=== PATIENT | female | born 1995 | race Caucasian/White ===

== ENCOUNTER → 2016-11-08 | Outpatient (CLI) | payer OTHER ==
--- NOTE | 2016-11-08 09:40 | US ---
Complete Abdominal Ultrasound History: General abdominal pain for 4 weeks. Comparison: None available. Findings: The liver has normal echotexture and contour. There is no intrahepatic biliary dilatation. The common bile duct measures 3 mm and is normal. The gallbladder is normal. The spleen is normal, me asuring 9.0 cm. The kidneys have normal echotexture and contour without hydronephrosis or contour def orming masses. The right kidney measures 10.0 cm and the left kidney measures 10.1 cm. The visible ao rta is normal caliber. The visible portions of the pancreas are normal with partial obscuration of th e pancreatic head and tail by overlying bowel gas. The visible portions of the IVC are normal. Impression: Normal abdominal ultrasound.
--- NOTE | 2016-11-08 12:55 | US ---
Transabdominal Pelvic Ultrasound History: 21-year-old with cramping, pain, Mirena IUD placed 3 years ago, amenorrhea secondary to IUD. Comparison: None available. Findings: The uterus measures 6.9 x 4.8 x 3.6 cm. The endometrium is homogeneous and measures 4 mm. Portions of the endometrium are obscured by the patient's IUD, which appears to be in good position. The left ov case measures 2.0 x 1.5 x 3.5 cm. The right ovary measures 4.2 x 3.8 x 2.3 cm. No adnexal masses are identified. Normal arterial blood flow is documented to both ovaries by Doppler ultrasound. There is trace free fluid. The bladder is normal. Impression: IUD in good position with no visible etiology for the patient's symptoms.
== END ==
LOC: BRMIMAGING 08:39
PROVIDERS: ATTEND Family Medicine
DX: R10.84 Generalized abdominal pain (principal); Z97.5 Presence of (intrauterine) contraceptive device
CPT/HCPCS: 76700-PO; 76856-PO